=== PATIENT | male | born 1990 | race Caucasian/White ===

== ENCOUNTER → 2016-10-14 | Outpatient (REF) | payer SELFPAY ==
[2015-09-01 19:28] VITALS: BP 141/94
[~2016-10-14] MED LIST: LAMICTAL 100MG100 MG PO; LITHIUM CA150 MG/CAP PO; SEROQUEL 1100 MG/TAB PO; ZANTAC150 M1 PO
== END ==
LOC: LAB 13:24
DX: F31.9 Bipolar disorder, unspecified (principal)

== ENCOUNTER 2016-10-21 21:33 | Emergency (ER) | payer SELFPAY ==
[~2016-10-21] VITALS: Ht 190.5 cm; Wt 79.5 kg
[2016-10-21] MEDS ORDERED: LITHIUM CA150 MG/CAP PO (21:35)
[2016-10-21] MEDS ORDERED: ZANTAC150 M1 PO (21:36)
[2016-10-21] MEDS ORDERED: SEROQUEL 1100 MG/TAB PO (21:36)
[2016-10-21] MEDS ORDERED: LAMICTAL 100MG100 MG PO (21:36)
[2016-10-21 21:38] VITALS: BP 112/68
== END 2016-10-21 22:27 | disposition left against medical advice (07) ==
LOC: ED 21:33
DX: R55 Syncope and collapse (principal); F31.9 Bipolar disorder, unspecified